=== PATIENT | female | born 1955 | race Caucasian/White ===

== ENCOUNTER → 2017-02-23 | Outpatient (CLI) | payer OTHER ==
--- NOTE | 2017-02-23 15:29 | REPMRS ---
Patient History The patient states she had a clinical breast exam in Patient is postmenopausal. No known family history of cancer. Benign excisional biopsy of the left breast, 1994. Digital Woman Screen Mammo: February 23, 2017 - Exam #: [id number] Bilateral CC and MLO view(s) were taken. Technologist: Honey Oconnell, Technologist Prior study comparison: July 23, 2015, digital woman screen mammo performed at [facility]. July 20, 2014, digital woman screen mammo performed at [facility]. June 29, 2013, digital woman screen mammo performed at [facility]. FINDINGS: There are scattered fibroglandular densities. There is a moderate amount of residual fibroglandular tissue which is fairly symmetric. There is no interval development of dominant mass, architectural distortion, or clustered microcalcification typical of malignancy. There has been no change in the appearance of the mammogram from the prior studies. ASSESSMENT: BI-RADS/ACR category 1 mammogram. Negative. Recommendation Routine screening mammogram of both breasts in 1 year (for women over age 40). This mammogram was interpreted with the aid of an FDA-approved computer-aided dectection system. Electronically Signed By: Wili Dacosta MD 02/23/17 0341
== END ==
LOC: M WHC 13:19
PROVIDERS: ATTEND Nurse Practitioner Family
DX: Z12.31 Encounter for screening mammogram for malignant neoplasm of breast (principal); Z78.0 Asymptomatic menopausal state

== ENCOUNTER → 2017-04-16 | Outpatient (REF) | payer OTHER | LOC: M SFHCWAGY 08:23 | PROVIDERS: ATTEND Nurse Practitioner Women's Health | DX: Z12.4 Encounter for screening for malignant neoplasm of cervix (principal) ==

== ENCOUNTER → 2018-11-04 | Outpatient (CLI) | payer OTHER ==
--- NOTE | 2018-11-04 15:10 | REPMRS ---
Patient History The patient states she had a clinical breast exam in 10/2018. Patient is postmenopausal. No known family history of cancer. Benign excisional biopsy of the left breast, 1994. No Hormone Replacement Therapy 3D TOMOSYNTHESIS WAS PERFORMED. Digital Woman Screen Mammo: November 04, 2018 - Exam #: [id number] Bilateral CC and MLO view(s) were taken. Technologist: Myrna Olson, Technologist Prior study comparison: February 23, 2017, digital woman screen mammo performed at [facility]. July 23, 2015, digital woman screen mammo performed at [facility]. FINDINGS: The breast tissue is heterogeneously dense. This may lower the sensitivity of mammography. There has been no change in the appearance of the mammogram from the prior studies. There is a moderate amount of residual fibroglandular tissue which is fairly symmetric. There is no interval development of dominant mass, areas of architectural distortion, or clustered microcalcification typical of malignancy. Assessment: BI-RADS/ACR category 1 mammogram. Negative Mammogram. Recommendation Routine screening mammogram in 1 year (for women over age 40). This mammogram was interpreted with the aid of an FDA-approved computer-aided dectection system. Electronically Signed By: Bari Farrell MD 11/04/18 [id number]
== END ==
LOC: M WHC 14:12
PROVIDERS: ATTEND Nurse Practitioner Women's Health
DX: Z12.31 Encounter for screening mammogram for malignant neoplasm of breast (principal)

== ENCOUNTER → 2018-12-16 | Outpatient (REF) | payer OTHER | LOC: M LAB REF 13:57 | PROVIDERS: ATTEND Podiatrist Foot & Ankle Surgery | DX: L60.8 Other nail disorders (principal) ==

== ENCOUNTER → 2020-03-05 | Outpatient (CLI) | payer OTHER ==
--- NOTE | 2020-03-30 09:29 | REPMRS ---
Patient History The patient states she had a clinical breast exam in February 2020.Patient is postmenopausal. No known family history of cancer. Benign excisional biopsy of the left breast, 1994. No Hormone Replacement Therapy Digital Woman Screen Mammo: March 05, 2020 - Exam #: [id number] Bilateral CC and MLO view(s) were taken. Technologist: Romina Vaughan, Technologist Prior study comparison: November 04, 2018, bilateral digital woman screen mammo performed at [facility]. February 23, 2017, digital woman screen mammo performed at [facility]. July 23, 2015, digital woman screen mammo performed at [facility]. FINDINGS: There are scattered fibroglandular densities. The Volpara volumetric breast density category is:B. There has been no change in the appearance of the mammogram from the prior studies. There is a mild amount of scattered fibroglandular density which is fairly symmetric. There is no interval development of dominant mass, architectural distortion, or grouped microcalcification suggestive of malignancy. 3-D tomosynthesis shows no additional findings. Report was delayed due to a malware attack on this facility. Assessment: BI-RADS/ACR category 1 mammogram. Negative Mammogram. Recommendation Routine screening mammogram of both breasts in 1 year (for women over age 40). This patient's Lifetime Breast Cancer Risk is estimated at 6.6 %. This mammogram was interpreted with the aid of an FDA-approved computer-aided dectection system. Electronically Signed By: Wili Dacosta MD 03/30/20 0990
== END ==
LOC: M WHC 16:49
PROVIDERS: ATTEND Nurse Practitioner Women's Health
DX: Z12.31 Encounter for screening mammogram for malignant neoplasm of breast (principal); Z78.0 Asymptomatic menopausal state

== ENCOUNTER → 2020-04-23 | Outpatient (CLI) | payer OTHER ==
--- NOTE | 2020-05-04 14:51 | DEXA ---
AP SPINE L1 - L4 1.097 -0.8 0.8 LT FEMUR TOTAL 1.068 0.5 1.7 LT NECK 0.946 -0.7 0.8 RT FEMUR TOTAL 1.044 0.3 1.5 RT NECK 0.965 -0.5 0.9 TOTAL BODY TOTAL OTHER COMMENTS: Normal bone densitometry of the spine and hips. The density of the spine has decreased 0.1% since 09/09/2007. The density of the left hip has decreased 4.7% since 09/09/2007. The density of the right hip has decreased 6.8% since 09/09/2007. FOLLOW-UP: Recommendation for the next bone density exam: 5 years. ELIZABETH
--- NOTE | 2020-06-13 11:18 | REP ---
PELVIC ULTRASOUND: CLINICAL: Post menopausal bleeding. TECHNIQUE: Transabdominal pelvic ultrasound followed by transvaginal examination for better evaluation of the endometrium and adnexa with color Doppler evaluation of the ovaries. FINDINGS: The bladder is normal and measures 9.0 x 8.6 x 3.3 cm (134 cc). Heterogeneous retroverted uterus measures 6.2 x 2.2 x 4.3 cm. The endometrial complex measures 2.7 mm thickness. No discrete uterine or endometrial abnormalities are identified and the previously noted 1.9 cm fundal fibroid is not visualized on current examination. The right ovary is normal in appearance and vascularity, measuring 1.2 x 1.5 x 1.8 cm (RI equals 0.46). The left ovary is again dominated by a simple cyst with internal daughter cyst, measuring 5.4 x 5.2 x 4.6 cm. Small amount of residual left ovarian tissue is noted (RI equals 0.56). No pelvic fluid or adnexal mass lesion. IMPRESSION: 1. Heterogeneous retroverted uterus. The previously noted fundal fibroid is not visualized on current examination. No discrete abnormality noted. 2. Left ovary dominated by large simple cyst with internal daughter cyst similar to prior examination. MTDD
== END ==
LOC: M WHC 08:11
PROVIDERS: ATTEND Nurse Practitioner Women's Health
DX: N95.1 Menopausal and female climacteric states (principal); N83.292 Other ovarian cyst, left side

== ENCOUNTER → 2022-07-11 | Outpatient (CLI) | payer BC, MEDICARE | LOC: M WHC 09:55 | PROVIDERS: ATTEND Nurse Practitioner Family | DX: Z12.31 Encounter for screening mammogram for malignant neoplasm of breast (principal) ==

== ENCOUNTER → 2022-07-11 | Outpatient (REF) | payer MEDICARE, BC | LOC: M PLALAB 12:03 | PROVIDERS: ATTEND Nurse Practitioner Family | DX: Z12.4 Encounter for screening for malignant neoplasm of cervix (principal) | CPT/HCPCS: 87624; G0123 ==